=== PATIENT | female | born 1960 | race Caucasian/White ===

== ENCOUNTER 2021-10-02 06:38 | Day surgery (SDC) | payer OTHER, SELFPAY ==
--- NOTE | ~2021-10-02 | CT_ITS ---
EXAMINATION: CT abdomen pelvis w con DATE: 10/02/2021 08:39 INDICATION: Incarcerated ventral hernia TECHNIQUE: Computed tomography (CT) of the abdomen and pelvis was performed with 100 mL Omnipaque-350 intravenous contrast. Automated exposure control and iterative reconstruction technique were employe d. The dose-length product was 1419.95 mGy-cm. COMPARISON: None FINDINGS: Mild bibasilar atelectasis. Heart size is normal. No pericardial or pleural effusion. Small sliding-t ype hiatal hernia. Subtle heterogeneity to the attenuation within the otherwise normal-appearing gall bladder suggesting sludge or stones. No pericholecystic inflammatory stranding to suggest acute arabella cystitis. Liver, spleen, pancreas, bilateral adrenal glands and right kidney are normal. Small parape lvic cysts at the left kidney. 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 Bowels including the appendix are normal. No obstruction. There is fat with mild st randing and small amount of fluid within a 7.0 x 5.1 x 3.9 cm midline ventral hernia in the upper abd omen with 1.3 cm diameter orifice. Bladder is normal. 3.7 cm fibroid at the uterine fundus and 1.5 si milar fibroid at the anterior body of the uterus. Bilateral adnexa are unremarkable. No free intraper itoneal gas or fluid. No pathologically enlarged abdominal or pelvic lymphadenopathy. Moderate to sev ere spondylosis in the lower thoracic spine and at the lumbosacral junction. IMPRESSION: 1. Inflammatory stranding and small amount of fluid within a fat-containing ventral hernia in the upp er abdomen. This suggests potential ischemia of the herniated fat. No herniated bowel. 2. Small sliding-type hiatal hernia. 3. Suggestion of sludge or gallstones within the otherwise normal gallbladder. 4. Fibroid uterus. Reviewed, dictated and finalized at location A. [employer] RIDE MANAGER IMPRESSION: 1. Inflammatory stranding and small amount of fluid within a fat-containing nicho tral hernia in the upper abdomen. This suggests potential ischemia of the herni ated fat. No herniated bowel. 2. Small sliding-type hiatal hernia. 3. Suggestion of sludge or gallstones within the otherwise normal gallbladder. 4. Fibroid uterus.
[2021-10-02 06:45] VITALS: BP 155/92; PULSE 104; RESP 18; TEMP 36.1; O2SAT 100
[2021-10-02 07:59] LABS: Basophils Percent Auto 0.5 % (0.2-1.2); Eosinophils Absolute Auto 0.2 K/mm3 (0-0.3); Hematocrit 38.3 % (37.0-47.0); Hemoglobin 13.3 g/dL (12.0-15.0); Immature Granulocyte Absolute 0.04 K/mm3 (0.00-0.031); Immature Granulocyte Percent A 0.5 % (0-0.5); Lymphocytes Absolute Auto 1.78 K/mm3 (0.9-3.2); Lymphocytes Percent Auto 21.2 % (18.3-44.2); Mean Corpuscular HGB Conc 34.7 g/dl (32-36); Mean Corpuscular Hemoglobin 30.4 pg (26-34); Mean Corpuscular Volume 87.6 fl (80-100); Mean Platelet Volume 9.9 fl (7.4-10.4); Monocytes Absolute Auto 0.6 K/mm3 (0.1-0.6); Monocytes Percent Auto 7.6 % (2.6-8.5); Neutrophils Absolute Auto 5.7 K/mm3 (1.3-6.7); Neutrophils Percent Auto 68.2 % (45.5-73.1); Platelet Count Result 292 k/mm3 (150-375); Red Blood Count 4.37 M/mm3 (4.2-5.4); Red Cell Distribution Width 12.4 % (11.5-14.5); White Blood Count 8.4 K/mm3 (4.5-10.0)
[2021-10-02 08:10] LABS: Add Urine Microscopic? YES; Appearance Urine Clear (Clear); Bilirubin Urine Negative (Negative); Blood Urine Negative (Negative); Color Urine Straw (Yellow); Glucose Urine UA Negative (Negative); Ketones Urine Negative (Negative); Leukocyte Esterase Ur 1+ LEU/UL (Negative); Nitrate Urine Negative (Negative); Protein Urine Negative (Negative); RBC Urine 0-2 /hpf (0-2); Specific Grav Ur 1.008 (1.001-1.035); Squamous Epithelial Cell Urine Rare /hpf (Few); Urobilinogen Urine Negative mg/dL (<2.0)
--- NOTE | 2021-10-02 08:20 | ED.ABDPAIN ---
HPI - Abdominal Pain General Chief Complaint: Abdominal Pain Stated Complaint: upper abd pain Time Seen by Provider: 10/02/21 07:24 Source: patient Mode of arrival: ambulatory Limitations: no limitations History of Present Illness HPI narrative: 61-year-old female essentially in good health Complains of upper abdominal pain since yesterday Describes it as burning, stabbing, something threatening to burst out of her abdomen at various times Relieved by nothing, exacerbated by palpation, no nausea vomiting diarrhea or constipation, no fever She also notes an epigastric swelling and tenderness which is also been there since yesterday She notes that swelling has been intermittently present for about a year but usually resolves overnight but did not do that this time Related Data Home Medications Medication Instructions Recorded Confirmed No Home Medications 10/02/21 10/02/21 Allergies Allergy/AdvReac Type Severity Reaction Status Date / Time No Known Allergies Allergy Unverified 10/02/21 06:49 Review of Systems Review of Systems: All systems reviewed & are unremarkable except as noted in HPI and below Constitutional: Constitutional: Reports no additional constitutional complaints, Denies chills, Denies fever(s) and Denies headache(s) Eyes: Eyes: Reports no additional eye complaints and Denies change in vision ENT: Denies headache(s) and Denies sore throat Cardiovascular: Cardiovascular: Denies chest pain and Denies dyspnea Respiratory: Respiratory: Denies cough and Denies dyspnea Gastrointestinal: Gastrointestinal: Reports abdominal pain, Denies bloating, Denies diarrhea and Denies vomiting Genitourinary: Genitourinary: Denies urinary frequency and Denies dysuria Musculoskeletal: Musculoskeletal: Denies deformity, Denies arthralgias, Denies joint swelling and Denies numbness Integumentary/Breasts: Skin/Breast: Denies rash and Denies wounds Neurologic: Denies headache(s), Denies focal weakness and Denies numbness Psychiatric: Psychiatric: Reports no additional psychiatric complaints Endocrine: Endocrine: Reports no additional endocrine complaints Hematologic/Lymphatic: Hematologic/Lymphatic: Reports no additional hematologic/lymphatic complaints Allergic/Immunologic: Allergic/Immunologic: Reports no additional allergic/immunologic complaints [facility] Family History Family History Other Hypertension Social History Social History Smoking status: Never smoker Alcohol intake: current Exam Const: General: cooperative and alert Nutritional Appearance: obese Orientation/consciousness: patient oriented x3 (alert) HENMT: Head: normal to inspection, normocephalic and atraumatic Ears: external ears normal General nose exam: no epistaxis Eyes: Conjunctivae: conjunctivae normal EOM: EOMs intact bilaterally Neck: Neck: normal visual inspection, supple and no JVD Resp: Effort & Inspection: normal respiratory effort and not labored Auscultation: clear to auscultation bilaterally, no rales, no rhonchi, no wheezes and other (BS =) Cardio: Rate: regular rate Rhythm: regular rhythm Heart sounds: no murmurs GI: Inspection: non-distended GI Palp: Yes Soft to palpation, Yes Tenderness to palpation present (GI), No Guarding due to palpation present (GI) and Yes Palpable mass present Other: About a 5 cm fixed and tender epigastric mass : General: Yes no CVA tenderness Skin: General skin exam: normal color and no rashes or lesions noted Neuro: General: patient oriented x3 (alert) and moves all extremities Speech: normal speech Extrem: General: normal to inspection and no pedal edema Psych: Affect: normal affect Course Course Emergency Course: Discussed with Dr. Mehta, he will evaluate patient for possible surgery Vital Signs Vital signs: Vital Signs Temperature 36.1 C L 12/0
[2021-10-02 08:21] LABS: Alanine Aminotransferase 20 U/L (4-35); Albumin Level 4.5 g/dL (3.5-5.1); Alkaline Phosphatase 91 U/L (38-126); Anion Gap 9 mmol/L (8-16); Aspartate Amino Transferase 22 U/L (14-36); Bilirubin,Total 0.5 mg/dL (0.2-1.3); Blood Urea Nitrogen 10 mg/dL (7-17); Calcium 9.6 mg/dL (8.4-10.2); Carbon Dioxide 22 mmol/L (22-30); Chloride 106 mmol/L (98-107); Estimated CRCL calculation 78 ml/min; Estimated Glomerular Filt Rate > 60; Glucose 123 mg/dL (65-110); Lipase 47 U/L (23-300); Potassium 4.1 mmol/L (3.4-5.0); Sodium 137 mmol/L (137-145)
--- NOTE | 2021-10-02 11:01 | PM.SD2 ---
Same Day Admit/Disch: HPI History of Present Illness Chief complaint: upper abd pain Narrative: Yodit Fall is a 61 year old female who has noticed an intermittent bulge in the upper mid abdomen for about a year. Yesterday the bulge occurred again and did not resolve. It is remained increasingly painful and she came to the emergency room today. Exam suggested an incarcerated epigastric hernia. CT scan showed a fat containing epigastric hernia as well. The patient is taken to surgery now for emergent repair of incarcerated ventral hernia. No bowel was noted on the CT scan in the herniated contents. Patient has not had nausea or vomiting. She has had no fever either. She has no history of previous abdominal surgery. [facility] Past Medical History Medical History (Updated 10/02/21 @ 13:00 by Justin Mehta MD) Obesity Family History Family History Other Hypertension Social History Social History Smoking status: Never smoker Alcohol intake: current Same Day Admit/Disch: Med Pre-admit Medications Home Medications Medication Instructions Recorded Confirmed Type hydrocodone-acetaminophen 1 - 2 tablet PO Q6H PRN #12 tablet 10/02/21 Rx ketorolac 10 mg PO Q6H 4 Days #16 tablet 10/02/21 Rx Exam Const: General: cooperative, comfortable, no acute distress, alert and awake; No confusion Orientation/consciousness: No confusion HENMT: Head: normocephalic, atraumatic, no contusions and no scalp lesions Ears: external ears normal General nose exam: Normal external nose present Face and sinus: face symmetric and dry mucous membranes Mouth: Yes Normal oral and palatal mucosa present and Yes tongue normal Throat: posterior oropharynx normal Eyes: Conjunctivae: conjunctivae normal Sclera: sclerae normal Pupils: Equal, round and reactive pupils present EOM: EOMs intact bilaterally Neck: Neck: normal visual inspection, no lymphadenopathy, trachea midline, supple, nontender and no JVD Thyroid: abnormal thyroid Resp: Effort & Inspection: normal respiratory effort Auscultation: clear to auscultation bilaterally Cardio: Rate: regular rate Rhythm: regular rhythm GI: Inspection: non-distended, obesity, no scars and visible herniation (Epigastric) GI Palp: Yes Soft to palpation, Yes Tenderness to palpation present (GI) (Epigastric mass), No Hepatomegaly present, No Splenomegaly present and Yes Hernia present (Tender subcutaneous mass epigastric area consistent with incarc hernia) Auscultation: normal bowel sounds and normoactive bowel sounds Skin: General skin exam: normal color, turgor normal and no erythema Lesions: no lesions Rashes: no rashes Trauma: no lacerations or abrasions Neuro: General: No confusion Cranial nerves: Yes Equal, round and reactive pupils present Motor exam (neuro): Motor abnormalities not present Extrem: General: no clubbing, cyanosis or edema and edema Psych: Affect: normal affect Thought process: Normal thought process present Insight: Good insight present (Psych) DS: Data Data Completed and Pending Labs on day of discharge: Labs from last 24 hours 10/02/21 10/02/21 10/02/21 07:44 07:44 07:43 WBC 8.4 RBC 4.37 Hgb 13.3 Hct 38.3 MCV 87.6 MCH 30.4 MCHC 34.7 RDW 12.4 Plt Count 292 MPV 9.9 Immature Gran % (Auto) 0.5 Neut % (Auto) 68.2 Lymph % (Auto) 21.2 [place] % (Auto) 7.6 Eos % (Auto) 2.0 Baso % (Auto) 0.5 Lymph # (Auto) 1.78 [place] # (Auto) 0.6 Eos # (Auto) 0.2 Baso # (Auto) 0.0 Abs Immat Gran (auto) 0.04 H Absolute Neuts (auto) 5.7 Absolute Nucleated RBC 0.0 Nucleated RBC % 0.0 Sodium 137 Potassium 4.1 Chloride 106 Carbon Dioxide 22 Anion Gap 9 BUN 10 Creatinine 0.80 Estim Creat Clear Calc 78 Estimated GFR > 60 Glucose 123 H Calcium 9.6 Total Bi
--- NOTE | 2021-10-02 11:04 | PC.NURSE ---
report given to IVAN Cruz in recovery. She will come get the pt.
--- NOTE | 2021-10-02 11:14 | WPDHPUPDATE1 ---
History and Physical Update Update Date/Time: 10/02/21 11:14 History and Physical has been reviewed, including an updated exam of the patient. There are NO changes in the patient's condition. Risks, benefits, and alternatives have been discussed and questions answered. Patient agrees to proceed with procedure.
[2021-10-02 11:20] VITALS: BP 154/78; PULSE 82; RESP 16; TEMP 36.6; O2SAT 98
--- NOTE | 2021-10-02 11:34 | WPDANESEPPF ---
Anes - Initial Pre Proc Eval Procedure: Operation Date: 10/02/21 12:00 Proposed Procedures p Repair of incarcerated Ventral Incisional Hernia Repair - Justin Mehta MD Date/Time: 10/02/21 11:34 Pre Op Diagnosis: upper abd pain Patient Data Age: 61 Gender: F Height: 1.68 m Weight: 104 kg Last Vital Signs Temp 36.1 C L 10/02/21 06:45 Pulse 104 H 10/02/21 06:45 Resp 18 10/02/21 06:45 BP 155/92 H 10/02/21 06:45 Pulse Ox 100 10/02/21 06:45 Allergies Allergy/AdvReac Type Severity Reaction Status Date / Time No Known Allergies Allergy Unverified 10/02/21 06:49 Home Medications Medication Instructions Recorded Confirmed Type hydrocodone-acetaminophen 1 - 2 tablet PO Q6H PRN #12 tablet 10/02/21 Rx ketorolac 10 mg PO Q6H 4 Days #16 tablet 10/02/21 Rx Laboratory Tests 10/02/21 10/02/21 10/02/21 07:43 07:44 07:44 WBC 8.4 K/mm3 K/mm3 (4.5-10.0) RBC 4.37 M/mm3 M/mm3 (4.2-5.4) Hgb 13.3 g/dL g/dL (12.0-15.0) Hct 38.3 % % (37.0-47.0) MCV 87.6 fl fl (80-100) MCH 30.4 pg pg (26-34) MCHC 34.7 g/dl g/dl (32-36) RDW 12.4 % % (11.5-14.5) Plt Count 292 k/mm3 k/mm3 (150-375) MPV 9.9 fl fl (7.4-10.4) Immature Gran % (Auto) 0.5 % % (0-0.5) Neut % (Auto) 68.2 % % (45.5-73.1) Lymph % (Auto) 21.2 % % (18.3-44.2) [place] % (Auto) 7.6 % % (2.6-8.5) Eos % (Auto) 2.0 % % (0-4.4) Baso % (Auto) 0.5 % % (0.2-1.2) Lymph # (Auto) 1.78 K/mm3 K/mm3 (0.9-3.2) [place] # (Auto) 0.6 K/mm3 K/mm3 (0.1-0.6) Eos # (Auto) 0.2 K/mm3 K/mm3 (0-0.3) Baso # (Auto) 0.0 K/mm3 K/mm3 (0.0-0.1) Abs Immat Gran (auto) 0.04 K/mm3 H K/mm3 (0.00-0.031) Absolute Neuts (auto) 5.7 K/mm3 K/mm3 (1.3-6.7) Absolute Nucleated RBC 0.0 K/mm3 K/mm3 (0.0-0.012) Nucleated RBC % 0.0 % % (0.0-0.2) Sodium 137 mmol/L mmol/L (137-145) Potassium 4.1 mmol/L mmol/L (3.4-5.0) Chloride 106 mmol/L mmol/L (98-107) Carbon Dioxide 22 mmol/L mmol/L (22-30) Anion Gap 9 mmol/L mmol/L (8-16) BUN 10 mg/dL mg/dL (7-17) Creatinine 0.80 mg/dL mg/dL (0.7-1.0) Estim Creat Clear Calc 78 ml/min ml/min Estimated GFR > 60 (59 - ) Glucose 123 mg/dL H mg/dL (65-110) Calcium 9.6 mg/dL mg/dL (8.4-10.2) Total Bilirubin 0.5 mg/dL mg/dL (0.2-1.3) AST 22 U/L U/L (14-36) ALT 20 U/L U/L (4-35) Alkaline Phosphatase 91 U/L U/L (38-126) Total Protein 7.0 g/dL g/dL (6.3-8.2) Albumin 4.5 g/dL g/dL (3.5-5.1) Lipase 47 U/L U/L (23-300) Urine Color Straw (Yellow) Urine Appearance Clear (Clear) Urine pH 7.0 (5.0-9.0) Ur Specific [place] 1.008 (1.001-1.035) Urine Protein Negative mg/dL mg/dL (Negative) Urine Glucose (UA) Negative mg/dL mg/dL (Negative) Urine Ketones Negative mg/dL mg/dL (Negative) Ur Blood (Man) Negative (Negative) Urine Nitrate Negative (Negative) Urine Bilirubin Negative (Negative) Urine Urobilinogen Negative mg/dL mg/dL (<2.0) Leukocyte Esterase Rfl 1+ PABLO/UL H PABLO/UL (Negative) Urine RBC 0-2 /hpf /hpf (0-2) Urine WBC 7-9 /hpf H /hpf Ur Squamous Epith Cells Rare /hpf /hpf (Few) Patient hx anesthesia problems: none Family hx anesthesia problems: none Results Review: All pre-operative results and documents have been reviewed as part of the pre-operative evaluation. [facility] Past Medical History Medical History (Updated 10/02/21 @ 11:37 by Surendra Nogueira MD) Incarcerated ventral hernia Obesity Family
[2021-10-02] MEDS: fentaNYL CITRATE INJ (*CRX) 100 MCG/2 ML VIAL 50 MCG IV PUSH (11:40)
[2021-10-02] MEDS: ONDANSETRON INJ 4 MG/2 ML VIAL IV PUSH (11:41)
[2021-10-02] MEDS: LACTATED RINGERS 1,000 ML 30 ML IV CONT (11:42)
[2021-10-02] MEDS: ceFAZolin 2 GM/D5W 50 ML 2 GM/50 ML BAG IVPB (11:54)
--- NOTE | 2021-10-02 12:00 | W.PM.PROC2 ---
Procedure Note - Detailed Date of Procedure 10/02/21 Pre-op Diagnosis Incarcerated epigastric ventral hernia Post-op Diagnosis same Procedure Performed Repair incarcerated ventral hernia with 4.6 cm Parietex underlay mesh Surgeon Justin Mehta MD Sheet Metal Duct Worker Supervisor Ari DOYLE Anesthesia general (G IV S) and local (0.5% Marcaine) Indications Patient is a 61-year-old woman who has noticed intermittent bulges in the upper abdomen which are occasionally painful but usually resolve very shortly. Last night this bulge recurred and did not resolve. Through the night it became increasingly painful. She came to the emergency room this morning. She was found by exam and imaging to have an incarcerated epigastric ventral hernia. There was no bowel involvement by CT scan. She has had no signs of bowel obstruction. She is taken to surgery now for repair with mesh. Findings Incarcerated epigastric ventral hernia Description of Procedure Patient was taken to surgery and IV anesthesia was introduced. The abdomen was prepped and draped. Local was infiltrated over the proposed transversely oriented incision in the upper midline of the abdomen. Incision was made dissection through the skin was carried out. The subcutaneous mass of herniated content was found easily. It was dissected free from the surrounding subcutaneous. Incarcerated hernia was then dissected back to its neck at the fascial edge. Additional local was infiltrated into the fascia all around the hernia. Some local was infiltrated in the neck of the hernia. The hernia sac was removed and the hernia contents were excised and discarded. No bowel involvement was noted. We then checked the underside of the hernia looking for any other defects or adhesions in the vicinity of the hernia. None were found. The defect was a 1.8 x 0.5 cm defect. It was oriented transversely. A 4.6 cm Parietex [place] was chosen. It was placed in the abdomen and positioned symmetrically. Using 0 Ethibond suture, cranial and caudal transfascial sutures were then placed. These were positioned such that, when tied, they would bring the edges of the hernia defect towards 1 another thereby reducing tension on the eventual closure. The sutures were tied and had the desired effect. The defect was then closed with [id number] mattress sutures of 0 Ethibond. Each of these incorporated a bit of mesh as well. Additional local was infiltrated all around the area of the repair. We then closed the wound in layers using a deeper layer of interrupted 3-0 Vicryl suture. A superficial layer of 4-0 Vicryl interrupted suture was placed. Subcuticular 4-0 Vicryl skin stitches were used and finally a running 4-0 Monocryl skin stitch was placed. Wound was dressed with Exofin surgical adhesive. Patient was awakened and taken to recovery in good condition. Sponge and needle counts were correct x2. Implants 4.6 cm Parietex mesh Estimated Blood Loss -5 Drains No Packing No Pathology none sent Complications No immediate complications Condition stable Disposition PACU
--- NOTE | 2021-10-02 12:21 | SUR.OPER ---
Addendum entered by Chidi Hill RN 10/02/21 12:45: Jewelry given to in PACU. Original Note: patient came back to OR with ring on left ring finger. Jewelry was removed and placed in sterile specimen cup with patient label affixed to cup. Jewelry sent to PACU with patient at end of case.
[2021-10-02 12:55] VITALS: BP 137/78; PULSE 90; RESP 16; TEMP 36.6; O2SAT 97
[2021-10-02 13:20] VITALS: BP 145/71; PULSE 67; RESP 16
[2021-10-02 13:30] VITALS: BP 141/72; PULSE 72; RESP 16
[2021-10-02 13:40] VITALS: BP 132/69; PULSE 67; RESP 16
--- NOTE | 2021-10-02 13:53 | SUR.PHASEII ---
pt meets discharge criteria and is getting dressed with her
== END 2021-10-02 13:53 | disposition home or self-care (01) ==
LOC: ANHED 11:54 → ANHSURGERY 14:18
PROVIDERS: Emergency Provider Emergency Medicine; Visit Provider Surgery
PROC: 0WQF0ZZ Repair Abdominal Wall, Open Approach (ICD-10-PCS; CPT 49561; principal; 2021-10-02 12:00)
DX: K43.6 Other and unspecified ventral hernia with obstruction, without gangrene (principal); R10.10 Upper abdominal pain, unspecified; E66.9 Obesity, unspecified; Z68.37 Body mass index [BMI] 37.0-37.9, adult; I10 Essential (primary) hypertension
CPT/HCPCS: 49561; 49568; 36415; 74177; 80053; 81001; 83690; 85025; 87086; 87088; 99285; C1781; J0131; J0690; J1100; J2250; J2405; J2704; J3010; J7120; Q9967

== ENCOUNTER 2022-03-08 05:34 | Inpatient (IN) | payer OTHER, SELFPAY ==
[2022-03-08] VITALS (36 sets, daily range): BP systolic 135–180; BP diastolic 61–98; PULSE 75–113; RESP 16–26; TEMP 35.9–36.9; O2SAT 91–100; BMI 36.6
--- NOTE | ~2022-03-08 | US_ITS ---
US abdomen limited DATE: 03/09/2022 09:50 INDICATION: Abdominal pain TECHNIQUE: Real-time imaging of liver, pancreas, gallbladder COMPARISON: 03/08/2022 CT abdomen pelvis FINDINGS: No hepatic or pancreatic space-occupying mass lesion is evident. Normal hepatopedal portal venous flow direction. The gallbladder is distended. There are multiple gallstones with associated shadowing. The gallbladde r is distended, with thickening of the wall. Negative sonographic Lambert's sign. The common bile duct measures 5.5 mm, within upper limits of normal. IMPRESSION: Cholelithiasis, gallbladder wall thickening; differential diagnosis includes acute and ch ronic cholecystitis. Radionuclide hepatobiliary scan may be helpful to differentiate acute from chron ic cholecystitis. Reviewed, dictated and finalized at [facility]. Reviewed, dictated and finalized at [facility]. IMPRESSION: Cholelithiasis, gallbladder wall thickening; differential diagnosis includes acute and chronic cholecystitis. Radionuclide hepatobiliary scan may be helpful to differentiate acute from chronic cholecystitis.
--- NOTE | ~2022-03-08 | XR_ITS ---
XR chest 1V portable 03/11/2022 08:34 Indication: Dyspnea. Cough. Procedure: AP portable chest Comparison: No prior studies for comparison. Findings: Heart size normal. Right basilar infiltrates may represent atelectasis or developing pneumo german. No significant effusion. Heart size normal. No edema or pneumothorax. No acute osseous abnormali ty. Impression: 1: Right basilar infiltrates may represent atelectasis or developing pneumonia. Reviewed, dictated and finalized at [facility]. Impression: 1: Right basilar infiltrates may represent atelectasis or developing pneumonia.
--- NOTE | ~2022-03-08 | CT_ITS ---
EXAMINATION: CT abdomen pelvis w con INDICATION: Generalized abdominal pain TECHNIQUE: Computed tomographic images of the abdomen and pelvis were obtained after the administrati on of 100 cc of Omnipaque 350 intravenous contrast. The dose-length product (DLP) was 1223.32 mGy-cm. Automated exposure control and iterative reconstruction technique were employed. COMPARISON: 10/02/2021 FINDINGS: Minimal dependent atelectasis is present in the lung bases. The heart size is normal. There is a small sliding hiatal hernia. The liver, spleen, pancreas, and adrenal glands are normal. There are stones in the gallbladder. The gallbladder is distended. There is thickening of the gallbladder w all. Hypoattenuating lesions of the right kidney measuring up to 6 mm are too small to characterize b ut likely represent cysts. 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 Peripelvic cysts are no dewey in the left kidney. No pathologically enlarged abdominal or pelvic lymph nodes are identified. Th ere is no free intraperitoneal gas or evidence of bowel obstruction. There are changes of interval me sh ventral hernia repair. There is severe lower thoracic spondylosis and moderate lumbar spondylosis at L4-5. IMPRESSION: 1. Cholelithiasis, gallbladder distention, and wall thickening of the gallbladder suspicious for acut e cholecystitis. Correlate for right upper quadrant pain. Reviewed, dictated and finalized at [facility]. IMPRESSION: 1. Cholelithiasis, gallbladder distention, and wall thickening of the gallbladd er suspicious for acute cholecystitis. Correlate for right upper quadrant pain.
--- NOTE | 2022-03-08 06:03 | ED.GENADULT ---
HPI - General Adult General Chief complaint: Abdominal Pain Stated complaint: abd pain, N/V/D Time Seen by Provider: 03/08/22 05:52 Source: patient, family and RN notes reviewed Mode of arrival: ambulatory Limitations: no limitations History of Present Illness HPI narrative: 61-year-old female presenting to the emergency department for evaluation of nausea vomiting and diarrhea. Patient states yesterday afternoon she began developing some diarrhea and then since 1 PM she had no further bowel movements. Patient since that time she has had worsening generalized abdominal pain with associated nausea and vomiting. Patient did have an incarcerated hernia repair on October 02, [address] Mehta. Related Data Home Medications Medication Instructions Recorded Confirmed No Home Medications 10/18/21 03/08/22 Allergies Allergy/AdvReac Type Severity Reaction Status Date / Time No Known Allergies Allergy Verified 03/08/22 14:59 Review of Systems Review of Systems: CONSTITUTIONAL: Denies fever, chills, or sweats. EYES: Denies visual changes, redness, or discharge. ENT: Denies rhinorrhea, congestion, sore throat, or otalgia. CARDIOVASCULAR: Denies chest pain, palpitations, or edema. RESPIRATORY: Denies cough or dyspnea. GASTROINTESTINAL: See HPI GENITOURINARY: Denies dysuria or hematuria. SKIN: Denies rash or itching. MUSCULOSKELETAL: Denies back pain, joint pain, or myalgia. NEUROLOGIC: Denies headache, numbness, or weakness. [facility] Past Medical History Medical History (Updated 03/08/22 @ 20:30 by Esa Toth MD) Incarcerated ventral hernia Obesity Surgical History Surgical History H/O hernia repair repair incarcerated ventral hernia with 4.6 cm parietex underlay mesh 10/02/21 Family History Family History Grandparent Hypertension Father Malignant neoplasm of prostate Kidney failure Mother Dementia Social History Social History Smoking status: Never smoker Alcohol intake: current Drinks per week: 2 Substance use: never Substance use type: does not use Spiritual care concerns: Yes (Denominational) Exam Narrative: APPEARANCE: Distressed due to abdominal pain HEAD: normocephalic, atraumatic. EYES: PERRLA/EOMI, conjunctivae clear. NECK: Supple. No adenopathy, no masses. RESPIRATORY: Airway patent, respirations nonlabored. Clear to auscultation bilaterally, no rales, rhonchi, wheezing. CARDIOVASCULAR: Regular rate and rhythm without murmurs rubs or gallops. ABDOMINAL: Diffusely tender abdomen. Normal bowel sounds MUSCULOSKELETAL: Moves all extremities. Strength/ROM intact, No edema, No calf tenderness. NEURO: Alert. Cranial nerves II through XII intact. SKIN: Warm, dry. Normal Color PSYCHIATRIC: Normal affect/mood. Course Course Emergency Course: Patient care was signed out to Dr. Navarro with CT abdomen pelvis pending Vital Signs Vital signs: Vital Signs Temperature 98.4 F 03/08/22 05:36 Pulse Rate 112 H 03/08/22 05:36 Respiratory Rate 26 H 03/08/22 05:36 Blood Pressure 154/82 H 03/08/22 05:36 Pulse Oximetry 100 03/08/22 05:36 Temperature 98.3 F 03/08/22 19:46 Pulse Rate 87 03/08/22 19:46 Respiratory Rate 17 03/08/22 19:46 Blood Pressure 150/68 H 03/08/22 19:46 Pulse Oximetry 99 03/08/22 19:46 Medical Decision Making Vital Signs Vital Signs: Vital Signs Temperature 98.4 F 03/08/22 05:36 Pulse Rate 112 H 03/08/22 05:36 Respiratory Rate 26 H 03/08/22 05:36 Blood Pressure 154/82 H 03/08/22 05:36 Pulse Oximetry 100 03/08/22 05:36 Temperature 98.3 F 03/08/22 19:46 Pulse Rate 87 03/08/22 19:46 Respiratory Rate 17 03/08/22 19:46 Blood Pressure 150/68 H 03/08/22 19:46 Pulse Oximetry 99 03/08/22 19:46 Lab Data Lab results reviewed: Yes I reviewed the
[2022-03-08 06:12] LABS: Basophils Percent Auto 0.2 % (0.2-1.2); Hematocrit 41.6 % (37.0-47.0); Hemoglobin 13.9 g/dL (12.0-15.0); Immature Granulocyte Absolute 0.09 K/mm3 (0.00-0.031); Immature Granulocyte Percent A 0.5 % (0-0.5); Lymphocytes Absolute Auto 1.21 K/mm3 (0.9-3.2); Lymphocytes Percent Auto 6.9 % (18.3-44.2); Mean Corpuscular HGB Conc 33.4 g/dl (32-36); Mean Corpuscular Hemoglobin 29.5 pg (26-34); Mean Corpuscular Volume 88.3 fl (80-100); Mean Platelet Volume 9.8 fl (7.4-10.4); Monocytes Absolute Auto 0.4 K/mm3 (0.1-0.6); Monocytes Percent Auto 2.2 % (2.6-8.5); Neutrophils Absolute Auto 15.8 K/mm3 (1.3-6.7); Neutrophils Percent Auto 90.2 % (45.5-73.1); Platelet Count Result 353 k/mm3 (150-375); Red Blood Count 4.71 M/mm3 (4.2-5.4); White Blood Count 17.6 K/mm3 (4.5-10.0)
[2022-03-08] MEDS: SODIUM CHLORIDE 0.9% IV 1,000 ML 999 ML IV CONT (06:12)
[2022-03-08] MEDS: ONDANSETRON INJ 4 MG/2 ML VIAL IV PUSH ×4 (06:12→17:30)
[2022-03-08] MEDS: HYDROmorphone HCL INJ (*CRX) 1 MG/ML SYR IV PUSH ×2 (06:13→08:15)
[2022-03-08 06:21] LABS: Appearance Urine Clear (Clear); Bilirubin Urine Negative (Negative); Blood Urine Negative (Negative); Color Urine Yellow (Yellow); Glucose Urine UA Negative (Negative); Ketones Urine 1+ mg/dL (Negative); Leukocyte Esterase Ur Negative LEU/UL (Negative); Nitrate Urine Negative (Negative); Protein Urine Trace mg/dL (Negative); Specific Grav Ur >= 1.030 (1.001-1.035); Urobilinogen Urine 0.2 mg/dL (<2.0)
[2022-03-08 06:23] LABS: Lactic Acid Reflex 2.4 mmol/L (0.7-2.0)
[2022-03-08 06:24] LABS: Alanine Aminotransferase 23 U/L (6-35); Albumin Level 4.6 g/dL (3.5-5.1); Alkaline Phosphatase 108 U/L (38-126); Anion Gap 11 mmol/L (8-16); Aspartate Amino Transferase 27 U/L (14-36); Bilirubin,Total 0.4 mg/dL (0.2-1.3); Blood Urea Nitrogen 9 mg/dL (7-17); Calcium 9.6 mg/dL (8.4-10.2); Carbon Dioxide 21 mmol/L (22-30); Chloride 105 mmol/L (98-107); Estimated CRCL calculation 87 ml/min; Estimated Glomerular Filt Rate > 60; Glucose 169 mg/dL (65-110); Lipase 40 U/L (23-300); Potassium 4.1 mmol/L (3.4-5.0); Sodium 137 mmol/L (137-145)
[2022-03-08 06:31] LABS: Mucus Urine Rare /lpf; RBC Urine 0-2 /hpf (0-2); Squamous Epithelial Cell Urine Rare /hpf (Few); WBC Urine 0-3 /hpf
[2022-03-08 06:32] LABS: Add Urine Microscopic? YES
[2022-03-08 09:09] LABS: Reflex Lactic Acid Yes or No Add Lactic
--- NOTE | 2022-03-08 10:06 | PC.NURSE ---
pt states her and her have recently returned from a cruise in the [facility]. states had negative covid testing daily. covid test completed and sent to lab.
[2022-03-08 10:08] LABS: Lactic Acid 1.7 mmol/L (0.7-2.0)
[2022-03-08 10:50] LABS: SARS-CoV-2 RNA PCR Positive
--- NOTE | 2022-03-08 12:00 | PC.NURSE ---
continue to wait for bed placement due to pts covid positive status.
[2022-03-08] MEDS: MORPHINE SULFATE (*CRX) 4 MG/ML INJ IV PUSH (13:03)
--- NOTE | 2022-03-08 13:31 | PM.IMCN ---
Assessment and Plan Assessment and plan (1) COVID-19: Code(s): U07.1 - COVID-19 Status: Acute Assessment and Plan: At this point in time patient is having no signs or symptoms of COVID-19. Patient does not have any hypoxia, shortness of breath, fever, cough, or congestion. There is no need for any further treatment for patient's COVID-19 since she is not hypoxic or having any symptoms. Unfortunately we do not know when patient did catch the virus because patients will test positive for quite sometime after exposure. (2) Cholelithiasis: Code(s): K80.20 - Calculus of gallbladder without cholecystitis without obstruction Status: Acute Assessment and Plan: General surgery is admitting patient for her cholelithiasis. There was discussion of possible ultrasound. Will continue pain management VT prophylaxis per General surgery. HPI Data of Consult Consult date: 03/08/22 Requesting Physician: Gonsalo Purdy MD Primary Care Provider: [facility] PHYSIC[facility] Consult Narrative Narrative: Yodit Fall is a 61 year old female who presented emergency room with complaints of abdominal pain, nausea, vomiting, and diarrhea that started yesterday. Patient states that she was doing well on Monday and did not notice any real abdominal pain after eating throughout the day. Patient states yesterday morning she woke up and had cereal for breakfast and was still feeling well and then later that day had toasted Ravioli and began having abdominal pain. In states she did have 2 bouts of diarrhea, which is abnormal for her she typically has bowel movements every other day. Patient states that the day went on she continued to have increasing right upper quadrant epigastric pain and feeling she decided to come to the emergency room early this morning for further evaluation. Upon evaluation in emergency room patient underwent CT scan which showed cholelithiasis, gallbladder distention, and wall thickening of the gallbladder suspicious for acute cholecystitis. Correlate for right upper quadrant pain. The case was discussed with General surgery and they were agreeable to admit the patient. Patient underwent a rapid COVID test and fortunately came back positive. Patient denies having any symptoms. Patient denies any fevers, chills, shortness of breath, cough, nasal congestion, or headaches. Patient states she was on the [employer] cruise at the beginning of January and had to test for COVID every single day and she was negative throughout the entire cruise. Patient states she has received the COVID vaccine and booster. Patient denies any past medical history except for gastroesophageal reflux disease and a hernia repair. Review of Systems Review of Systems: A 12 point review of systems was completed patient all pertinent positive and negative per HPI the remainder are unremarkable. [facility] Past Medical History Medical History Obesity Surgical History Surgical History H/O hernia repair repair incarcerated ventral hernia with 4.6 cm parietex underlay mesh 10/02/21 Family History Family History Other Hypertension Social History Social History Smoking status: Never smoker Alcohol intake: current Meds Home Medications and Allergies Home Medications Medication Instructions Recorded Confirmed Type No Home Medications 10/18/21 11/15/21 History Allergies Allergy/AdvReac Type Severity Reaction Status Date / Time No Known Allergies Allergy Verified 03/08/22 05:58 Vital Signs Vital Signs - 24 hr 03/08/22 05:36 03/08/22 05:58 03/08/22 05:59 Temperature 36.9 C Pulse Rate 112 H Respiratory Rate 26 H Blood Pressure 154/82 H 180/89 H Pulse Oximetry 100 99 97
--- NOTE | 2022-03-08 14:40 | ADMGEN ---
This patient, Yodit Fall, was admitted to 2 Medical Room 243-. Patient/family oriented to hospital policies and general routines including ID bracelet, bed and alarms, visiting hours, pain management, procedures, bathroom and other care routines, personal items, smoking policy, room service/diet, and visiting hours. Information on how to activate the Rapid Response Team has been discussed. Patient/Family are encouraged to report perceived risks to care and to ask questions if they do not understand what they are told or what they should do.
[2022-03-08] MEDS: SODIUM CHLORIDE 0.9% IV 1,000 ML 100 ML IV CONT (15:39)
[2022-03-08] MEDS: MORPHINE SULFATE (*CRX) 2 MG/ML INJ IV PUSH (17:30)
--- NOTE | 2022-03-08 17:43 | PM.IMHP ---
H&P: HPI History of Present Illness Date/Time: 03/08/22 17:43 Chief Complaint: generalized abdominal pain Narrative: This patient is a pleasant 61-year-old white female presented to the emergency room today with a 24 hour history of gradually increasing abdominal cramping, diarrhea and subsequently nausea and dry heaving. Workup in the emergency room was a CT scan which revealed a sliding hiatal hernia a slightly distended gallbladder with either stones or sludge. (See report). Also patient was found to be COVID positive. She has previously vaccinated boosted. Upon interview this is a 61 year old White female who presented to the [facility] emergency room with complaints of abdominal pain, nausea, vomiting, and diarrhea that started at about 3 PM on 03/07. Patient states that she was doing well on Monday and did not notice any real abdominal pain after eating throughout that day. Patient states that yesterday morning she woke up and had cereal for breakfast and was still feeling well and then later that day had toasted Ravioli and began having abdominal pain. In states she did have 2 bouts of diarrhea, which is abnormal for her she typically has bowel movements every other day. Patient states that the day went on she continued to have increasing right upper quadrant epigastric pain and feeling she decided to come to the emergency room early this morning for further evaluation. Upon evaluation in emergency room patient underwent CT scan which showed cholelithiasis, gallbladder distention, and wall thickening. Radiologist recomended correlation for right upper quadrant pain. The patient's pain was across the entire abdomen specifically limited to the quadrant. Patient underwent a rapid COVID test and unfortunately came back positive. Patient denies having any symptoms. Patient denies any fevers, chills, shortness of breath, cough, nasal congestion, or headaches. Patient states she was on the [employer] cruise at the beginning of January and had to test for COVID every single day and she was negative throughout the entire cruise. Review of Systems Review of Systems: All systems reviewed & are unremarkable except as noted in HPI and below (HPI) Constitutional: Constitutional: Reports as per HPI, Denies chills and Denies fever(s) Eyes: Eyes: Reports no additional eye complaints ENT: Reports Normal hearing present and Denies dizziness Cardiovascular: Cardiovascular: Reports no additional cardiovascular complaints, Denies chest pain and Denies irregular heart rhythm Respiratory: Respiratory: Reports no additional respiratory complaints Gastrointestinal: Gastrointestinal: Reports no additional gastrointestinal complaints, Denies abdominal pain, Denies bloating, Reports loose stools, Reports nausea and Reports vomiting ( Mainly small amounts and dry heaving) Genitourinary: Genitourinary: Denies hematuria Comments: 2 para 2 AB 0 two normal vaginal deliveries. Musculoskeletal: Musculoskeletal: Denies back pain Integumentary/Breasts: Skin/Breast: Reports system reviewed and no additional complaints, except as docu Neurologic: Reports Normal hearing present, Denies Abnormal speech present, Denies confusion and Denies dizziness Psychiatric: Psychiatric: Reports no additional psychiatric complaints and Denies confusion Endocrine: Endocrine: Reports no additional endocrine complaints Hematologic/Lymphatic: Hematologic/Lymphatic: Denies easy bleeding and Denies easy bruising Allergic/Immunologic: Allergic/Immunologic: Reports no additional allergic/immunologic complaints PMFSH Past Medical History Medical History (Updated 03/08/22 @ 20:30 by Esa Toth MD) Incarcerated ventral hernia Obesity Surgical History Surgical History H/O hernia repair repair incarcerated ventral hernia with 4.6 cm parietex underlay mesh 10/02/21 Family History Family Hist
[2022-03-09] VITALS (7 sets, daily range): BP systolic 128–166; BP diastolic 58–70; PULSE 48–76; RESP 16–18; TEMP 36.3–37; O2SAT 95–100
[2022-03-09] MEDS: SODIUM CHLORIDE 0.9% IV 1,000 ML 100 ML IV CONT ×2 (02:14→12:56)
[2022-03-09 06:11] LABS: Basophils Percent Auto 0.3 % (0.2-1.2); Eosinophils Absolute Auto 0.2 K/mm3 (0-0.3); Eosinophils Percent Auto 2.4 % (0-4.4); Hematocrit 36.5 % (37.0-47.0); Hemoglobin 12.4 g/dL (12.0-15.0); Immature Granulocyte Absolute 0.04 K/mm3 (0.00-0.031); Immature Granulocyte Percent A 0.4 % (0-0.5); Lymphocytes Absolute Auto 1.39 K/mm3 (0.9-3.2); Lymphocytes Percent Auto 15.3 % (18.3-44.2); Mean Corpuscular Hemoglobin 29.7 pg (26-34); Mean Corpuscular Volume 87.5 fl (80-100); Mean Platelet Volume 10.3 fl (7.4-10.4); Monocytes Absolute Auto 0.7 K/mm3 (0.1-0.6); Monocytes Percent Auto 7.8 % (2.6-8.5); Neutrophils Absolute Auto 6.7 K/mm3 (1.3-6.7); Neutrophils Percent Auto 73.8 % (45.5-73.1); Platelet Count Result 218 k/mm3 (150-375); Red Blood Count 4.17 M/mm3 (4.2-5.4); Red Cell Distribution Width 13.3 % (11.5-14.5); White Blood Count 9.1 K/mm3 (4.5-10.0)
[2022-03-09 06:17] LABS: Alanine Aminotransferase 126 U/L (6-35); Albumin Level 3.7 g/dL (3.5-5.1); Alkaline Phosphatase 107 U/L (38-126); Anion Gap 6 mmol/L (8-16); Aspartate Amino Transferase 206 U/L (14-36); Bilirubin,Total 1.4 mg/dL (0.2-1.3); Blood Urea Nitrogen 9 mg/dL (7-17); Calcium 8.5 mg/dL (8.4-10.2); Carbon Dioxide 24 mmol/L (22-30); Chloride 109 mmol/L (98-107); Estimated CRCL calculation 70 ml/min; Estimated Glomerular Filt Rate > 60; Glucose 128 mg/dL (65-110); Magnesium 2.1 mg/dL (1.6-2.3); Potassium 3.8 mmol/L (3.4-5.0); Sodium 139 mmol/L (137-145)
[2022-03-09 08:28] LABS: Hepatitis B Surface Antigen Negative (Negative)
[2022-03-09 08:34] LABS: HAV RESULT Negative (Negative); Hepatitis B Core IgM Result Negative (Negative)
[2022-03-09] MEDS: ENOXAPARIN 40 MG/0.4 ML SYRINGE SUB-Q (08:44)
[2022-03-09 08:46] LABS: Hepatitis C Virus Antibody Negative (Negative)
--- NOTE | 2022-03-09 10:00 | PM.IMPN ---
Progress Note: A&P Assessment and Plan (1) COVID-19: Code(s): U07.1 - COVID-19 Status: Acute Assessment and Plan: Covid positive on 03/08/22 No complaints of shortness of breath, hypoxia, fever, cough, or congestion No indication for treatment at this time Isolation precautions Trend SPO2 (2) Cholelithiasis: Qualifiers: Biliary obstruction: without biliary obstruction Cholecystitis presence: without cholecystitis Cholelithiasis location: gallbladder Qualified Code(s): K80.20 - Calculus of gallbladder without cholecystitis without obstruction Code(s): K80.20 - Calculus of gallbladder without cholecystitis without obstruction Status: Acute Assessment and Plan: Reports abdominal pain CT of the abdomen shows Cholelithiasis, gallbladder distention, and wall thickening of the gallbladder suspicious for acute cholecystitis. Correlate for right upper quadrant pain. Pain medications Morphine Clear liquids General surgery consulted DVT [facility] RUQ ultrasound Management per surgery Surgery VS waiting for COVID isolation (3) Transaminitis: Code(s): R74.01 - Elevation of levels of liver transaminase levels Status: Acute Assessment and Plan: AST/ALT elevated 206/126 Bili 1.4 Elevated related to cholelithiasis or cholecystitis Continue to trend US ordered Will check Hep panel Time Spent With Patient Time with patient: 25 - 35 minutes Subjective Date/time seen: 03/09/22 10:00 Interval history: Narrative: Yodit Fall is a 61 year old female who presented emergency room with complaints of abdominal pain, nausea, vomiting, and diarrhea that started yesterday. Patient states that she was doing well on Monday and did not notice any real abdominal pain after eating throughout the day. Patient states yesterday morning she woke up and had cereal for breakfast and was still feeling well and then later that day had toasted Ravioli and began having abdominal pain. In states she did have 2 bouts of diarrhea, which is abnormal for her she typically has bowel movements every other day. Patient states that the day went on she continued to have increasing right upper quadrant epigastric pain and feeling she decided to come to the emergency room early this morning for further evaluation. Upon evaluation in emergency room patient underwent CT scan which showed cholelithiasis, gallbladder distention, and wall thickening of the gallbladder suspicious for acute cholecystitis. Correlate for right upper quadrant pain. The case was discussed with General surgery and they were agreeable to admit the patient. Patient underwent a rapid COVID test and fortunately came back positive. Patient denies having any symptoms. Patient denies any fevers, chills, shortness of breath, cough, nasal congestion, or headaches. Patient states she was on the [employer] cruise at the beginning of January and had to test for COVID every single day and she was negative throughout the entire cruise. Patient states she has received the COVID vaccine and booster. Patient denies any past medical history except for gastroesophageal reflux disease and a hernia repair. Date/Time 03/09/22 10:00 Patient seems to be doing ok. She is still having pain, a /10. She is worried about having to wait for intervention. She stated that she is really not able to eat. She is also very worried that she is going to have another flare up. She did have some jello, which she stated did not sit well with her. She also is complaining of a headache. Tylenol is ordered. She denies any chest pain, shortness of breath, nausea, vomiting, fevers, sweats, and chills. Review of Systems Review of Systems: All systems reviewed & are unremarkable except as noted in HPI and below Exam Const: General: cooperative, healthy appearing, no acute distress, well developed, alert and awake Nutri
[2022-03-09] MEDS: ONDANSETRON INJ 4 MG/2 ML VIAL IV PUSH ×2 (10:42→22:01)
[2022-03-09] MEDS: MORPHINE SULFATE (*CRX) 2 MG/ML INJ IV PUSH (10:42)
--- NOTE | 2022-03-09 15:01 | PM.PNGS ---
Progress Note: A&P Assessment and Plan (1) Cholelithiasis: Qualifiers: Biliary obstruction: without biliary obstruction Cholecystitis presence: without cholecystitis Cholelithiasis location: gallbladder Qualified Code(s): K80.20 - Calculus of gallbladder without cholecystitis without obstruction Code(s): K80.20 - Calculus of gallbladder without cholecystitis without obstruction Status: Acute Assessment and Plan: CT difficult to tell if the gallbladder had sludge or gallstones. RUQ ultrasound showed multiple gallstones with gallbladder wall thickening. WBC down to normal today. Her pain has improved but she continues to deal with nausea. No vomiting. She would like to try some clear liquids this evening. Continue IV Zosyn Discussed with the patient again why we would like to treat her conservatively if possible and discharge home to do this electively. Will continue to monitor and see how she progresses. (2) Elevated LFTs: Code(s): R79.89 - Other specified abnormal findings of blood chemistry Status: Acute Assessment and Plan: LFTs elevated on today's labs with a total bilirubin of 1.4. Will repeat labs tomorrow. (3) COVID-19: Code(s): U07.1 - COVID-19 Status: Acute Assessment and Plan: COVID positive, but seems to be asymptomatic. Would be ideal to be able to treat this conservatively for now and proceed with an elective cholecystectomy, but will have to see how she progresses. If she needs surgery on this admission, would just have to take appropriate isolation precautions in the OR. (4) BMI 36.0-36.9,adult: Code(s): Z68.36 - Body mass index [BMI] 36.0-36.9, adult Status: Acute Additional Plan I have discussed the patient's case and plan of care with Dr. Purdy. Subjective Subjective Date/Time Seen: 03/09/22 15:01 Patient reports: no new complaints, pain is less, nausea and afebrile Interval history: Patient seen and examined. Her pain is much better today. She reports still having some epigastric abdominal pain but mild today. She is still having waves of nausea. She has not vomited. She has been NPO so far today for the ultrasound. She did receive some IV Morphine earlier and felt that it helped her pain. She is expressing how badly she would like the surgery to be done while she is hospitalized now. She does not feel she can tolerate going home the way she feels now. Review of Systems Review of Systems: All systems reviewed & are unremarkable except as noted in HPI and below Exam Const: General: no acute distress and awake Orientation/consciousness: patient oriented x3 GI: Inspection: normal to inspection and non-distended GI Palp: Yes Soft to palpation, Yes Tenderness to palpation present (GI) (tender across her upper abdomen), No Guarding due to palpation present (GI), No Hernia present and No Rebound tenderness present Auscultation: normal bowel sounds Neuro: General: moves all extremities and no focal motor deficits Extrem: General: normal to inspection Psych: Insight: Good insight present (Psych) Judgement: Good judgement present (Psych) Objective Data Vital Signs Vital Signs: Vital Signs - 24 hr 03/08/22 15:30 03/08/22 17:34 03/08/22 19:46 Temperature 98.1 F 98.3 F Pulse Rate 75 87 Respiratory Rate 16 16 17 Blood Pressure 136/73 150/68 H Pulse Oximetry 99 98 99 03/08/22 20:00 03/08/22 21:20 03/08/22 23:22 Temperature 96.6 F L Pulse Rate 88 Respiratory Rate 17 Blood Pressure 135/61 Pulse Oximetry 99 98 97 03/09/22 03:33 03/09/22 08:33 Temperature 97.8 F 97.3 F L Pulse Rate 74 48 L Respiratory Rate 17 16 Blood Pressure 131/63 165/68 H Pulse Oximetry 95 96 Intake/Output Intake/Output: Intake & Output 03/06/22 03/07/22 03/08/22 03/09/22 23:59 23:59 23:59 23:59 Intake Total 1280 2300 Output Total 1100 Balance 180 2300 Meds/Results Medications: Active Medications
[2022-03-09] MEDS: HYDROcodone/acetaminophen (*CRX) 5-325 MG TABLET 1 TAB PO (22:01)
[2022-03-10] VITALS (8 sets, daily range): BP systolic 109–166; BP diastolic 47–73; PULSE 62–77; RESP 16–18; TEMP 35.6–36.4; O2SAT 96–99
[2022-03-10] MEDS: SODIUM CHLORIDE 0.9% IV 1,000 ML 100 ML IV CONT ×2 (00:50→12:21)
[2022-03-10 06:00] LABS: Basophils Percent Auto 0.3 % (0.2-1.2); Eosinophils Absolute Auto 0.3 K/mm3 (0-0.3); Eosinophils Percent Auto 5.4 % (0-4.4); Hemoglobin 11.4 g/dL (12.0-15.0); Immature Granulocyte Absolute 0.01 K/mm3 (0.00-0.031); Immature Granulocyte Percent A 0.2 % (0-0.5); Lymphocytes Absolute Auto 1.76 K/mm3 (0.9-3.2); Lymphocytes Percent Auto 28.7 % (18.3-44.2); Mean Corpuscular HGB Conc 32.6 g/dl (32-36); Mean Corpuscular Hemoglobin 29.5 pg (26-34); Mean Corpuscular Volume 90.7 fl (80-100); Mean Platelet Volume 10.4 fl (7.4-10.4); Monocytes Absolute Auto 0.5 K/mm3 (0.1-0.6); Monocytes Percent Auto 8.3 % (2.6-8.5); Neutrophils Absolute Auto 3.5 K/mm3 (1.3-6.7); Neutrophils Percent Auto 57.1 % (45.5-73.1); Platelet Count Result 184 k/mm3 (150-375); Red Blood Count 3.86 M/mm3 (4.2-5.4); Red Cell Distribution Width 12.9 % (11.5-14.5); White Blood Count 6.1 K/mm3 (4.5-10.0)
[2022-03-10 06:18] LABS: Alanine Aminotransferase 121 U/L (6-35); Albumin Level 3.2 g/dL (3.5-5.1); Alkaline Phosphatase 107 U/L (38-126); Anion Gap 4 mmol/L (8-16); Aspartate Amino Transferase 81 U/L (14-36); Bilirubin,Total 0.8 mg/dL (0.2-1.3); Blood Urea Nitrogen 8 mg/dL (7-17); Calcium 8.3 mg/dL (8.4-10.2); Carbon Dioxide 24 mmol/L (22-30); Chloride 109 mmol/L (98-107); Estimated CRCL calculation 78 ml/min; Estimated Glomerular Filt Rate > 60; Glucose 95 mg/dL (65-110); Lipase 34 U/L (23-300); Potassium 3.4 mmol/L (3.4-5.0); Sodium 137 mmol/L (137-145)
[2022-03-10] MEDS: ENOXAPARIN 40 MG/0.4 ML SYRINGE SUB-Q (09:30)
[2022-03-10] MEDS: ONDANSETRON INJ 4 MG/2 ML VIAL IV PUSH (09:33)
[2022-03-10] MEDS: ACETAMINOPHEN 500 MG TABLET 1000 MG PO (09:33)
[2022-03-10 10:32] LABS: SARS-CoV-2 RNA PCR Negative
--- NOTE | 2022-03-10 11:45 | PM.IMPN ---
Progress Note: A&P Assessment and Plan (1) COVID-19: Code(s): U07.1 - COVID-19 Status: Acute Assessment and Plan: Covid positive on 03/08/22 No complaints of shortness of breath, hypoxia, fever, cough, or congestion No indication for treatment at this time Isolation precautions Trend SPO2 Covid PCR was nagative (2) Cholelithiasis: Qualifiers: Biliary obstruction: without biliary obstruction Cholecystitis presence: without cholecystitis Cholelithiasis location: gallbladder Qualified Code(s): K80.20 - Calculus of gallbladder without cholecystitis without obstruction Code(s): K80.20 - Calculus of gallbladder without cholecystitis without obstruction Status: Acute Assessment and Plan: Reports abdominal pain CT of the abdomen shows Cholelithiasis, gallbladder distention, and wall thickening of the gallbladder suspicious for acute cholecystitis. Correlate for right upper quadrant pain. Pain medications Morphine Clear liquids General surgery consulted DVT Lovenox RUQ ultrasound Cholelithiasis, gallbladder wall thickening; differential diagnosis includes acute and chronic cholecystitis. Radionuclide hepatobiliary scan may be helpful to differentiate acute from chronic cholecystitis. Management per surgery Surgery VS waiting for COVID isolation (3) Transaminitis: Code(s): R74.01 - Elevation of levels of liver transaminase levels Status: Acute Assessment and Plan: AST/ALT elevated 81/121 Bili 0.8 Elevated related to cholelithiasis or cholecystitis Continue to trend RUQ Ultrasound: Cholelithiasis, gallbladder wall thickening; differential diagnosis includes acute and chronic cholecystitis. Radionuclide hepatobiliary scan may be helpful to differentiate acute from chronic cholecystitis. Hep panel negative Time Spent With Patient Time with patient: Greater than 35 minutes Subjective Date/time seen: 03/10/22 11:45 Interval history: Narrative: Yodit Fall is a 61 year old female who presented emergency room with complaints of abdominal pain, nausea, vomiting, and diarrhea that started yesterday. Patient states that she was doing well on Monday and did not notice any real abdominal pain after eating throughout the day. Patient states yesterday morning she woke up and had cereal for breakfast and was still feeling well and then later that day had toasted Ravioli and began having abdominal pain. In states she did have 2 bouts of diarrhea, which is abnormal for her she typically has bowel movements every other day. Patient states that the day went on she continued to have increasing right upper quadrant epigastric pain and feeling she decided to come to the emergency room early this morning for further evaluation. Upon evaluation in emergency room patient underwent CT scan which showed cholelithiasis, gallbladder distention, and wall thickening of the gallbladder suspicious for acute cholecystitis. Correlate for right upper quadrant pain. The case was discussed with General surgery and they were agreeable to admit the patient. Patient underwent a rapid COVID test and fortunately came back positive. Patient denies having any symptoms. Patient denies any fevers, chills, shortness of breath, cough, nasal congestion, or headaches. Patient states she was on the [email or web address] cruise at the beginning of January and had to test for COVID every single day and she was negative throughout the entire cruise. Patient states she has received the COVID vaccine and booster. Patient denies any past medical history except for gastroesophageal reflux disease and a hernia repair. Date/Time 03/09/22 10:00 Patient seems to be doing ok. She is still having pain, a /10. She is worried about having to wait for intervention. She stated that she is really not able to eat. She is also very worried that she is going to have another flare up. She did h
--- NOTE | 2022-03-10 15:08 | PCCCNOTE ---
On 03/10/22, the student, [Ellie Roberts ], provided care and completed [facility] documentation on this patient. I have reviewed the student's documentation and agree with the findings.
--- NOTE | 2022-03-10 15:15 | PM.PNGS ---
Progress Note: A&P Assessment and Plan (1) Cholelithiasis: Qualifiers: Biliary obstruction: without biliary obstruction Cholecystitis presence: without cholecystitis Cholelithiasis location: gallbladder Qualified Code(s): K80.20 - Calculus of gallbladder without cholecystitis without obstruction Code(s): K80.20 - Calculus of gallbladder without cholecystitis without obstruction Status: Acute Assessment and Plan: CT difficult to tell if the gallbladder had sludge or gallstones. RUQ ultrasound showed multiple gallstones with gallbladder wall thickening. WBC remains normal and she is afebrile. Her abdominal pain and nausea have improved. Will advance to a low fat diet. I had a long conversation with the patient about the timing of surgery and our recommendations to go home with 4 more days of oral antibiotics and schedule her surgery as an outpatient next week. She is agreeable to this plan. Our office will contact her as an outpatient with the date of surgery and information for pre-op instructions. If the patient is able to tolerate a diet tonight, then she could be discharged from our standpoint. (2) Elevated LFTs: Code(s): R79.89 - Other specified abnormal findings of blood chemistry Status: Acute Assessment and Plan: LFTs trended down today. Will defer MRCP at this time with a normal total bilirubin. (3) COVID-19: Code(s): U07.1 - COVID-19 Status: Acute Assessment and Plan: COVID positive on admission with PCR test. Repeat COVID PCR today was negative. She is asymptomatic. The initial test could have been a false positive. Discussed with the Hospitalist. They will plan on d/c isolation precautions since she is asymptomatic with a negative test. (4) BMI 36.0-36.9,adult: Code(s): Z68.36 - Body mass index [BMI] 36.0-36.9, adult Status: Acute Additional Plan I have discussed the patient's case and plan of care with Dr. Purdy. Subjective Subjective Date/Time Seen: 03/10/22 15:15 Patient reports: no new complaints, feels better, flatus, bowel movement (loose stools) and afebrile Interval history: Patient seen and examined. She reports feeling better today. She is no longer having any abdominal pain and is only having slight soreness with palpation. She reports having some nausea with clear liquids earlier today, but it subsided spontaneously. She did not have any vomiting. No other complaints at this time. Review of Systems Review of Systems: All systems reviewed & are unremarkable except as noted in HPI and below Exam Const: General: no acute distress and awake Orientation/consciousness: patient oriented x3 GI: Inspection: non-distended GI Palp: Yes Soft to palpation, Yes Tenderness to palpation present (GI) (very mildly tender in the RUQ), No Guarding due to palpation present (GI) and No Rebound tenderness present Auscultation: normal bowel sounds Neuro: General: moves all extremities and no focal motor deficits Extrem: General: normal to inspection Psych: Insight: Good insight present (Psych) Judgement: Good judgement present (Psych) Objective Data Vital Signs Vital Signs: Vital Signs - 24 hr 03/09/22 18:20 03/09/22 19:27 03/09/22 20:00 Temperature 98.2 F 97.4 F L Pulse Rate 75 76 76 Respiratory Rate 16 18 18 Blood Pressure 144/70 H 166/58 H Pulse Oximetry 98 100 100 03/09/22 23:33 03/10/22 03:30 03/10/22 12:15 Temperature 97.9 F 97.1 F L 97.4 F L Pulse Rate 73 62 75 Respiratory Rate 16 18 17 Blood Pressure 128/63 166/47 H 109/73 Pulse Oximetry 97 96 97 Intake/Output Intake/Output: Intake & Output 03/07/22 03/08/22 03/09/22 03/10/22 23:59 23:59 23:59 23:59 Intake Total 1280 3250 3250 Output Total 1100 750 100 Balance 180 2500 3150 Meds/Results Medications: Active Medications Generic Name Dose Route Start Last Admin Trade Name Freq PRN Reason Stop Dose Admin Acetaminophen 1,000 mg 05
[2022-03-11 03:25] VITALS: BP 128/73; PULSE 73; RESP 16; TEMP 35.9; O2SAT 96
[2022-03-11 05:08] LABS: Basophils Percent Auto 0.4 % (0.2-1.2); Eosinophils Absolute Auto 0.4 K/mm3 (0-0.3); Hematocrit 35.9 % (37.0-47.0); Hemoglobin 12.2 g/dL (12.0-15.0); Immature Granulocyte Absolute 0.03 K/mm3 (0.00-0.031); Immature Granulocyte Percent A 0.4 % (0-0.5); Lymphocytes Absolute Auto 1.43 K/mm3 (0.9-3.2); Lymphocytes Percent Auto 21.1 % (18.3-44.2); Mean Corpuscular Hemoglobin 29.5 pg (26-34); Mean Corpuscular Volume 86.9 fl (80-100); Mean Platelet Volume 9.8 fl (7.4-10.4); Monocytes Absolute Auto 0.5 K/mm3 (0.1-0.6); Monocytes Percent Auto 7.1 % (2.6-8.5); Neutrophils Absolute Auto 4.4 K/mm3 (1.3-6.7); Platelet Count Result 206 k/mm3 (150-375); Red Blood Count 4.13 M/mm3 (4.2-5.4); Red Cell Distribution Width 12.5 % (11.5-14.5); White Blood Count 6.8 K/mm3 (4.5-10.0)
[2022-03-11 05:18] LABS: Alanine Aminotransferase 92 U/L (6-35); Albumin Level 3.7 g/dL (3.5-5.1); Alkaline Phosphatase 112 U/L (38-126); Anion Gap 9 mmol/L (8-16); Aspartate Amino Transferase 66 U/L (14-36); Bilirubin,Total 0.6 mg/dL (0.2-1.3); Blood Urea Nitrogen 6 mg/dL (7-17); Calcium 8.7 mg/dL (8.4-10.2); Carbon Dioxide 22 mmol/L (22-30); Chloride 108 mmol/L (98-107); Estimated CRCL calculation 78 ml/min; Estimated Glomerular Filt Rate > 60; Glucose 97 mg/dL (65-110); Potassium 3.6 mmol/L (3.4-5.0); Sodium 139 mmol/L (137-145)
[2022-03-11] MEDS: ENOXAPARIN 40 MG/0.4 ML SYRINGE SUB-Q (10:17)
[2022-03-11 10:50] VITALS: BP 147/74; PULSE 72; RESP 16; TEMP 36.5; O2SAT 96
--- NOTE | 2022-03-11 12:09 | PM.DS ---
DS: Admitting Diagnosis Discharge Date 03/11/2022 Admitting Diagnosis cholelithiasis with abdominal pain COVID-19 positive rapid test. DS: Discharge Diagnosis Discharge Diagnosis (1) Cholelithiasis: Onset Date: ~03/07/22 Qualifiers: Biliary obstruction: without biliary obstruction Cholecystitis presence: without cholecystitis Cholelithiasis location: gallbladder Qualified Code(s): K80.20 - Calculus of gallbladder without cholecystitis without obstruction Code(s): K80.20 - Calculus of gallbladder without cholecystitis without obstruction Status: Acute Assessment and Plan: This was the main reason for the patient's admission. However, in the ED she had a swab for COVID because of admission and it was positive. Subsequently 2 -3 days later she had a COVID PCR test that turned negative. (2) Transaminitis: Onset Date: ~02/2022 Code(s): R74.01 - Elevation of levels of liver transaminase levels Status: Acute Assessment and Plan: CMP was followed during her admission and intrinsic liver enzymes went up a little bit but her bilirubin was normal. (3) COVID-19: Code(s): U07.1 - COVID-19 Status: Acute (4) BMI 36.0-36.9,adult: Code(s): Z68.36 - Body mass index [BMI] 36.0-36.9, adult Status: Acute DS: Summary Hospital Course Reason for hospitalization: Acute abdominal pain with cholelithiasis. Hospital Course: Patient had a gradually improvement during her hospital stay. She was placed on IV antibiotics to treat possible acute cholecystitis. On postop admission day 1 the patient had ultrasound which still showed what appeared to be gallstones and some thickened gallbladder wall. However because of her positive COVID test we continue treating with antibiotics since her symptoms were improving and felt that we should try to be conservative and then wait for COVID to jeremiah and then expose the patient general anesthesia at a later date. She seemed to could gradually get better. Her diet was restarted on post admission day 2. And she was tolerating low-fat diet. We talked with her specifically about following a low-fat diet on discharge and then on the day of discharge she also had a COVID-19 PCR test come back as negative. Therefore we had conflicting results the hospitalist recommended that we go ahead and let her be discharged and then recheck her prior to surgery. We had a long conversation with the patient about the timing of surgery and our recommendations to go home with 4 more days of oral antibiotics and schedule her surgery as an outpatient next week. She will of course have another COVID test which needs to be negative prior to her return for surgery next week. If it is negative we will plan to proceed. She is agreeable to this plan. Our office will contact her as an outpatient with the date of surgery and information for pre-op instructions. Following this discussion the patient stayed overnight 1 more night and was doing well when I checked her so she was discharged on 2021. Status at Discharge Functional status at discharge: independent ambulation Overall status at discharge: patient is not back to baseline ( still being careful with fatty food diet and having mild abdominal cramping.) Time Spent with Patient Time attestation: Total time spent providing and/or coordinating discharge services: Exam Const: General: cooperative, comfortable, alert and awake Orientation/consciousness: patient oriented x3 HENMT: Head: normal to inspection Mouth: Yes moist mucous membranes Eyes: Sclera: sclerae normal Pupils: Equal, round and reactive pupils present Neck: Neck: normal visual inspection and no JVD Chest: Chest palpation & inspection: normal inspection of the chest Resp: Effort & Inspection: normal respiratory effort Auscultation: clear to auscultation bilaterally Cardio: Jugular venous distension: no JVD Rate: reg
--- NOTE | 2022-03-11 12:30 | PM.IMPN ---
Progress Note: A&P Assessment and Plan (1) COVID-19: Code(s): U07.1 - COVID-19 Status: Acute Assessment and Plan: Patient had positive COVID test on 03/08/22. She remained asymptomatic Repeat test on 03/10/22 was negative CXR showed right basilar infiltrates, likely atelectasis, developing pneumonia not excluded Patient remained on room air during hospitalization and had no respiratory symptoms Incentive spirometry provided Educated regarding COVID-19 precautions and worrisome signs and symptoms for which to return showed respiratory symptoms developed (2) Cholelithiasis: Onset Date: ~03/07/22 Qualifiers: Biliary obstruction: without biliary obstruction Cholecystitis presence: without cholecystitis Cholelithiasis location: gallbladder Qualified Code(s): K80.20 - Calculus of gallbladder without cholecystitis without obstruction Code(s): K80.20 - Calculus of gallbladder without cholecystitis without obstruction Status: Acute Assessment and Plan: Presented with abdominal pain, found to have cholelithiasis, gallbladder distention, and wall thickening concerning for acute cholecystitis Manage per General surgery with antibiotics which will be continued She will follow-up outpatient for outpatient cholecystectomy Low-fat diet (3) Transaminitis: Onset Date: ~02/2022 Code(s): R74.01 - Elevation of levels of liver transaminase levels Status: Acute Assessment and Plan: LFTs mildly elevated with overall improvement during hospitalization Total bilirubin levels normalized and MRCP was deferred Subjective Date/time seen: 03/11/22 12:30 Interval history: Date of service: 03/11/2022 Yodit Barkley is a 61-year-old female with a history of incarcerated ventral hernia who is seen in follow-up for cholelithiasis. She has feeling well today. She was able to tolerate a solid diet for dinner again for breakfast this morning 1 tolerated breakfast without any difficulties. She states she does have occasional throughout her abdomen and very few twinges of discomfort. She denies nausea or vomiting. Denies diarrhea. Denies shortness breath, cough, chest, dizziness, lightheadedness, weakness. She has been ambulating without difficulty. She is eager for discharge home. Review of Systems Review of Systems: All systems reviewed & are unremarkable except as noted in HPI and below Exam Narrative: General: Well appearing 61 year-old female, sitting up in bed, comfortable, NARD Neuro: awake, alert and oriented x4, speech clear, no focal neuro deficits noted HEENMT: normocephalic, atraumatic, EOMI, sclerae anicteric Respiratory: clear to auscultation bilaterally, nonlabored breathing Cardio: regular rate, regular rhythm with S1-S2 Abdomen: nondistended, normoactive bowel sounds, soft, minimal tenderness to palpation of right upper quadrant Extremities: no edema, erythema, or tenderness to palpation Skin: no rashes or lesions, warm and dry Psych: appropriate mood and affect, judgment and insight intact Objective Data Vital Signs Vital Signs: Vital Signs - 24 hr 03/10/22 15:19 03/10/22 18:00 03/10/22 20:00 Temperature 96.9 F L Pulse Rate 69 73 Respiratory Rate 16 18 Blood Pressure 148/71 H Pulse Oximetry 98 98 99 03/10/22 20:46 03/10/22 21:07 03/10/22 23:54 Temperature 96.1 F L 97.5 F L Pulse Rate 73 77 Respiratory Rate 18 17 Blood Pressure 145/48 H 137/73 Pulse Oximetry 97 99 96 03/11/22 03:25 03/11/22 10:50 Temperature 96.7 F L 97.7 F Pulse Rate 73 72 Respiratory Rate 16 16 Blood Pressure 128/73 147/74 H Pulse Oximetry 96 96 Intake/Output Intake/Output: Intake & Output 03/08/22 03/09/22 03/10/22 03/11/22 23:59 23:59 23:59 23:59 Intake Total 1280 3250 5390 490 Output Total 9336 496 5667 600 Balance 180 2500 3990 -110 Meds/Results Medications: Active Medications Generic Name Dose Route Star
[2022-03-11 14:35] VITALS: BP 135/75; PULSE 84; RESP 16; TEMP 37.2; O2SAT 98
== END 2022-03-11 16:45 | disposition home or self-care (01) | DRG 444 ==
LOC: ANHED 07:15 → ANH3MEDSUR 12:23 → ANH2MED 14:04
PROVIDERS: Nurse Practitioner; Admitting Provider Surgery; Emergency Provider Emergency Medicine; Visit Provider Surgery
DX: K80.12 Calculus of gallbladder with acute and chronic cholecystitis without obstruction (principal); U07.1 COVID-19; K21.9 Gastro-esophageal reflux disease without esophagitis; E66.9 Obesity, unspecified; Z68.36 Body mass index [BMI] 36.0-36.9, adult
CPT/HCPCS: 36415; 71045; 74177; 76705; 80053; 80074; 81001; 83605; 83690; 83735; 85025; 96365; 96375; 96376; 99285; A9270; C9803; G0378; J1170; J1650; J2270; J2405; J2543; J7030; Q9967; U0003; U0005

== ENCOUNTER 2022-03-16 13:28 | Outpatient (CLI) | payer OTHER, SELFPAY ==
--- NOTE | 2022-03-16 13:39 | ECG_ITS ---
Measurements Intervals [place] Rate: 77 P: 25 AL: 163 QRS: 45 QRSD: 81 T: 69 QT: 345 QTc: 390 Interpretive Statements SINUS RHYTHM BASELINE ARTIFACT- I, II, III, AVR, AVL, AVF NORMAL ECG Electronically Signed On 03-16-2022 14:10:03 CDT by Jamarcus Coronado D.O.
[2022-03-16 14:14] LABS: Hematocrit 40.9 % (37.0-47.0); Hemoglobin 13.7 g/dL (12.0-15.0); Mean Corpuscular HGB Conc 33.5 g/dl (32-36); Mean Corpuscular Hemoglobin 29.7 pg (26-34); Mean Corpuscular Volume 88.5 fl (80-100); Mean Platelet Volume 10.1 fl (7.4-10.4); Platelet Count Result 299 k/mm3 (150-375); Red Blood Count 4.62 M/mm3 (4.2-5.4); Red Cell Distribution Width 13.2 % (11.5-14.5); White Blood Count 7.9 K/mm3 (4.5-10.0)
[2022-03-16 14:15] LABS: Alanine Aminotransferase 61 U/L (6-35); Albumin Level 4.4 g/dL (3.5-5.1); Alkaline Phosphatase 95 U/L (38-126); Amylase 60 U/L (30-110); Anion Gap 10 mmol/L (8-16); Aspartate Amino Transferase 39 U/L (14-36); Bilirubin,Total 0.3 mg/dL (0.2-1.3); Blood Urea Nitrogen 12 mg/dL (7-17); Calcium 9.6 mg/dL (8.4-10.2); Carbon Dioxide 24 mmol/L (22-30); Chloride 107 mmol/L (98-107); Estimated Glomerular Filt Rate > 60; Glucose 95 mg/dL (65-110); Lipase 62 U/L (23-300); Potassium 4.2 mmol/L (3.4-5.0); Sodium 141 mmol/L (137-145)
== END 2022-03-16 13:29 | disposition home or self-care (01) ==
LOC: ANHSURGERY 13:32
PROVIDERS: Visit Provider Surgery
DX: Z01.818 Encounter for other preprocedural examination (principal); K80.20 Calculus of gallbladder without cholecystitis without obstruction
CPT/HCPCS: 36415; 80053; 82150; 82248; 83690; 85027; 93005

== ENCOUNTER 2022-03-18 00:44 | Day surgery (SDC) | payer OTHER, SELFPAY ==
[2022-03-15 15:23] VITALS: BMI 34.9
--- NOTE | 2022-03-15 16:04 | PC.NURSE ---
Report to the Outpatient Waiting Room, entrance under the green pavilion located off [facility], at time _0930 on date _03/18/22 . OR Time: 1130 . IF YOUR SURGERY TIME IS CHANGED, WE WILL CALL YOU ON 03/17/22 AFTERNOON TO UPDATE TIMES - You and your visitor will be asked a series of questions to screen for COVID 19 for your protection. - Only one visitor is allowed at this time. - The patient visitor is requested to leave or wait in car when not with patient. - A mask is required within the hospital. Patients may have clear liquids (water, carbonated beverages, clear teas, apple juice) until 3 hours prior to surgery with a maximum of 20 ounces. - No food from midnight until time of surgery - Take the following medications with a SIP of water the morning of surgery: __pain pill if needed Medications to discontinue per physician n/A Date to take last dose N/A Please no make-up, nail bulgarian, hairspray, perfume, deodorant, or body powder the day of surgery. No jewelry (including any body piercings) or valuables the day of surgery, leave them at home. Please take a shower or bath the night before, or the morning of, surgery with an antibacterial soap. THE SOAP IS CALLED CHLORHEXIDINE GLUCONATE OR HIBICLENS. Wear comfortable, loose fitting clothing. - Jewelry must be removed prior to entering the operating room. Rings and piercings that are not removed may be cut off. - The hospital will not accept responsibility for valuables. - Please leave all valuables, including medications, at home the day of surgery. If you are going home after surgery, a licensed automobile drivers must drive you home. - NO public transportation without another adult. - We recommend that an adult stay with you for 24 hours following discharge. - We also recommend that you do not drive, make important decision, drink alcoholic beverages, or take any drugs that were not prescribed by your health care provider for at least 24 hours after your discharge time. Follow any additional instructions given to you from your surgeon. If you or anyone in your household have experienced Covid symptoms in the past week, please notify your surgeon or the nurse liaison at the phone number below for possible testing. Telephone instructions given to __PAMELA and asked if any additional questions and then verbalized understanding. Patient advised to call surgeon office or pre surgery nurse liaison [phone] if any additional questions.
[2022-03-18] VITALS (12 sets, daily range): BP systolic 121–169; BP diastolic 60–79; PULSE 57–102; RESP 14–20; TEMP 36.6–36.7; O2SAT 92–99
--- NOTE | 2022-03-18 09:05 | WPDANESEPPF ---
Anes - Initial Pre Proc Eval Procedure: Operation Date: 03/18/22 11:30 Proposed Procedures p Laparoscopic Cholecystectomy possible Intraoperative Cholangiogram, Possible Open - Gonsalo Purdy MD Date/Time: 03/18/22 09:05 Surgeon: Gonsalo Purdy MD Pre Op Diagnosis: CHOLELITHIASIS Patient Data Age: 61 Gender: F Height: 1.69 m Weight: 99.5 kg Allergies Allergy/AdvReac Type Severity Reaction Status Date / Time No Known Allergies Allergy Verified 03/15/22 16:02 Home Medications Medication Instructions Recorded Confirmed Type hydrocodone-acetaminophen 1 tablet PO Q6H PRN #10 tablet 03/11/22 03/15/22 Rx Patient hx anesthesia problems: none Family hx anesthesia problems: none Results Review: All pre-operative results and documents have been reviewed as part of the pre-operative evaluation. FOR[facility]LY [facility] Past Medical History Medical History (Updated 03/11/22 @ 12:11 by Gonsalo Purdy MD) Incarcerated ventral hernia Obesity Surgical History Surgical History H/O hernia repair repair incarcerated ventral hernia with 4.6 cm parietex underlay mesh 10/02/21 Family History Family History Grandparent Hypertension Father Malignant neoplasm of prostate Kidney failure Mother Dementia Social History Social History Smoking status: Never smoker Alcohol intake: current Drinks per week: 2 Substance use: never Substance use type: does not use Living arrangements: with family Spiritual care concerns: No Anes - Eval Final PreProcedure Day of Procedure 03/18/22 09:05 Patient weight: obese Heart: regular rate and rhythm Lungs: clear to auscultation and normal air movement Airway: Mallampati scale class II Neurological: alert and oriented Last oral intake: >/= 8 hours ASA classification: II Emergent: no Anesthetic plan: proceed Anesthesia type and monitoring: general ETT Results Review: All pre-operative results and documents have been reviewed as part of the pre-operative evaluation. Informed Consent: The patient's anesthetic plan and its attendant risks and benefits were discussed with the patient/family/POA. Questions were solicited and answers provided to the satisfaction of the patient/family/POA.
--- NOTE | 2022-03-18 11:05 | WPDHPUPDATE1 ---
History and Physical Update Update Date/Time: 03/18/22 11:05 History and Physical from her recent admission has been reviewed, including an updated exam of the patient. There are changes in the patient's condition.She has had a repeat PCR Covid-19 test as an outpatient which was negative. She has religiously followed a low fat diet at home and has had no to minimal upper abdominal pain in the interim. Risks, benefits, and alternatives have been discussed and questions answered. Patient agrees to proceed with procedure.
[2022-03-18] MEDS: LACTATED RINGERS 1,000 ML 30 ML IV CONT ×3 (11:10→15:58)
[2022-03-18] MEDS: KETOROLAC 15 MG/ML VIAL (*BKC) IV PUSH (11:14)
[2022-03-18] MEDS: ceFAZolin 2 GM/D5W 50 ML 2 GM/50 ML BAG IVPB (11:30)
--- NOTE | 2022-03-18 11:34 | SUR.PREOP ---
PT STATES SHE HAS I/S AT HOME AND HAS BEEN USING IT SINCE LAST ADMIT THEREFORE, NO INSTRUCTION NEEDED. DR. MCARTHUR AWARE.
[2022-03-18] MEDS: ONDANSETRON INJ 4 MG/2 ML VIAL IV PUSH (14:41)
--- NOTE | 2022-03-18 14:55 | W.PM.PROC2 ---
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 She was actually admitted about 10 days ago but we did not operate because she had a false positive COVID test upon admission. Her gallbladder symptoms improved with antibiotics and she was discharged and now returns for elective laparoscopic cholecystectomy due to known gallstones and recent symptoms. Findings Patient had a very large long gallbladder with apparent fairly large stone in the neck. There was definite seemingly acute inflammatory changes on the lower quarter of the gallbladder with omentum densely adhered to the lower quarter and neck of the gallbladder. There seemed to be enough stones in the gallbladder that it was not compressible so the umbilical incision site fascia had to be opened to at least 2.5 cm in length. Description of Procedure Patient was seen preoperatively in the holding area and risks, benefits and alternatives confirmed. Patient was taken to the operating room and general anesthesia was induced. A time out was then preformed with the surgery team confirming patient and site of surgery. The abdomen was prepped and draped in the usual sterile fashion. Incision was made just below the umbilicus with an 11 blade knife. I placed 2 stay sutures of O- Vicryl on either side of the mid-line fascia beneath the umbilicus and was then able to slide in the Boland cannula through the fascial defect into the peritoneum. First under low flow and then under high flow the abdomen was insufflated with carbon dioxide never exceeding a pressure of 14. Three 5 mm trocars were then introduced under direct vision. The following trocars were introduced under direct vision: a 5 mm in the epigastrium and two 5 mm trocars along the right costal margin laterally in the subcostal area. There were significant omental adhesions to the underside of the gallbladder. These were taken down with blunt and sharp dissection using some Bovie cautery for hemostasis. We were able to dissect this completely away from the neck of the gallbladder. I then carefully used the L-shaped cautery and the [place] dissector to dissect out the [place] of [place]. I then was able to dissect out both the cystic duct and cystic artery and identify a window of safety. The gall bladder was grasped and the cystic duct and artery were dissected free and clipped with an 5 mm endo-clip title searcher. The cystic duct and artery were clipped with use of 2 clips on the patient's side 1 on the gallbladder side utilizing a 5 mm endoclip-title searcher. The cystic duct was then transected. The cystic artery was also transected at this point. The gall bladder was removed using electrocautery and then removed from the abdomen using an endobag . In order to get the large stone out of the abdomen within the gallbladder and the noncompressibility of the distended gallbladder, I did make the fascial defect slightly larger with Vicente scissors. The trocars were removed visualizing hemostasis and the remaining gas evacuated. The large trocar site at the umbilicus was closed with use of the 2 stay sutures of 0 Vicryl mentioned above and also a figure of 8 #1 Vicryl suture in 3 separate interrupted sutures of 0 Vicryl.. These were all left long after placement under direct vision and then tied while holding up on the 2 stay sutures. The 2 stay sutures mentioned above on either side of the fascia were also tied together to help approximate this midline fascia. Further local anesthetic was placed into each incision for postop pain control. The skin incisions were closed with subcutic
[2022-03-18] MEDS: SCOPOLAMINE 1.5 MG PATCH TRANSDERM (15:24)
[2022-03-18] MEDS: HALOPERIDOL LACTATE 5 MG/ML VIAL 1 MG IV PUSH (15:56)
--- NOTE | 2022-03-18 17:02 | SUR.PHASEII ---
PATIENT WAKING UP SOMEWHAT. DOZING OFF AND ON BUT EYES MORE OPEN WHEN AWAKE. ABLE TO WALK A FEW STEPS TO CHAIR FROM WHEELCHAIR.
== END 2022-03-18 17:49 | disposition home or self-care (01) ==
PROVIDERS: Visit Provider Surgery
PROC: 0FT44ZZ Resection of Gallbladder, Percutaneous Endoscopic Approach (ICD-10-PCS; CPT 47562; principal; 2022-03-18 11:30)
DX: K80.12 Calculus of gallbladder with acute and chronic cholecystitis without obstruction (principal); R10.84 Generalized abdominal pain; R10.13 Epigastric pain; R11.2 Nausea with vomiting, unspecified; R19.7 Diarrhea, unspecified; E66.9 Obesity, unspecified; Z68.35 Body mass index [BMI] 35.0-35.9, adult
CPT/HCPCS: 47562; 36415; 80053; 82150; 82248; 83690; 85027; 88304; 93005; A9270; J0690; J1100; J1170; J1630; J1885; J2250; J2405; J2704; J3010; J7030; J7120; Q9966

== ENCOUNTER 2022-10-19 09:17 | Emergency (ER) | payer OTHER, SELFPAY ==
[2022-10-19 09:35] VITALS: BP 168/98; PULSE 102; RESP 16; TEMP 36.4; O2SAT 98
--- NOTE | 2022-10-19 09:58 | ED.URI ---
HPI - URI/Sore Throat General Chief Complaint: Upper Respiratory Infection Stated Complaint: uri Time Seen by Provider: 10/19/22 09:40 Source: patient Mode of arrival: ambulatory Limitations: no limitations History of Present Illness HPI Narrative: Ms. Fall is a 62-year-old female patient presenting to clinic today with complaints cough and chest congestion times 3-4 days. She denies any fever or chills. Is bringing up some green tinged phlegm. She has taken at home COVID test today and was negative. no history of COPD or asthma but has had history of bronchitis in the past. She is a nonsmoker MD elicited complaint: cough, nasal congestion and other ( Chest congestion) Related Data Allergies Allergy/AdvReac Type Severity Reaction Status Date / Time No Known Allergies Allergy Verified 10/19/22 09:47 Review of Systems Review of Systems: Pertinent positives per HPI. Patient denies any fever, chills, rash, headache, visual changes, dizziness, shortness of breath, chest pain, palpitations, nausea, vomiting, diarrhea, constipation, abdominal pain, or any urinary issues. FOR[facility] Past Medical History Medical History Incarcerated ventral hernia Obesity Surgical History Surgical History H/O hernia repair repair incarcerated ventral hernia with 4.6 cm parietex underlay mesh 10/02/21 Hx laparoscopic cholecystectomy Laproscopic Cholecystectomy 03/18/2022 Family History Family History Grandparent Hypertension Father Malignant neoplasm of prostate Kidney failure Mother Dementia Social History Social History Smoking status: Never smoker Alcohol intake: current Drinks per week: 2 Substance use: never Substance use type: does not use Spiritual care concerns: No Comments At the time of my signature, I reviewed and agree with the nursing past medical, surgical, social, and family history. There is no relevant family history pertinent to the patient complaint. Exam Narrative: General: Well-developed, obese, in no apparent distress Head: Normocephalic, atraumatic Eyes: Pupils equally round and reactive to light bilaterally, EOM intact, sclera and conjunctive clear, no discharge, lids normal Ears: TMs intact and clear, ear canals clear, no drainage, grossly hearing normal. Nose: Nares patent, clear nasal discharge, no inflammation, no sinus tenderness. Mouth: Oral pharynx without lesions or masses, good dentition, MMM. postnasal drip Neck: Supple, trachea midline, no enlargement of anterior or posterior cervical nodes, no thyroid masses or goiter palpable. Cardio: Regular rate and rhythm, s1 and s2 normal, no murmur appreciated. Resp: faint expiratory wheeze otherwise clear, no rhonchi, rales, or rubs Course Course Emergency Course: Portions of this record may have been created with voice recognition software. Level of Care: Express Care Visit Vital Signs Vital signs: Vital Signs Temperature 36.4 C L 10/19/22 09:35 Pulse Rate 102 H 10/19/22 09:35 Respiratory Rate 16 10/19/22 09:35 Blood Pressure 168/98 H 10/19/22 09:35 Pulse Oximetry 98 10/19/22 09:35 Oxygen Delivery Room Air 10/19/22 09:35 Temperature 36.4 C L 10/19/22 09:35 Pulse Rate 102 H 10/19/22 09:35 Respiratory Rate 16 10/19/22 09:35 Blood Pressure 168/98 H 10/19/22 09:35 Pulse Oximetry 98 10/19/22 09:35 Oxygen Delivery Room Air 10/19/22 09:35 Vital signs reviewed MDM - URI/Sore Throat MDM Narrative Medical decision making narrative: At the time of visit patient is resting comfortably on exam table. I suspect the patient has viral bronchitis. She did not help COVID test this morning and was negative. Prescription for prednisone and albute
== END 2022-10-19 10:07 | disposition home or self-care (01) ==
PROVIDERS: Emergency Provider Nurse Practitioner Family
DX: J40 Bronchitis, not specified as acute or chronic (principal)
CPT/HCPCS: 99213; G0463